=== PATIENT | male | born 1980 | race African-American/Black ===

== ENCOUNTER 2019-07-14 18:42 | Emergency (ER) | payer MEDICAID ==
[~2019-07-14] VITALS: Ht 172.7 cm; Wt 85.0 kg
[2019-07-14 18:48] VITALS: BP 123/78
== END 2019-07-14 20:09 | disposition home or self-care (01) ==
LOC: ER 18:42
DX: H10.33 Unspecified acute conjunctivitis, bilateral (principal); F17.200 Nicotine dependence, unspecified, uncomplicated
CPT/HCPCS: 99283